=== PATIENT | male | born 1955 | race Caucasian/White ===

== ENCOUNTER 2019-11-03 16:15 | Emergency (ER) | payer OTHER ==
[~2019-11-03] VITALS: Ht 175.3 cm; Wt 77.1 kg
[2019-11-03 16:46] VITALS: BP 131/70
--- NOTE | 2019-11-03 17:03 | RAD ---
Right upper Extremity Venous Doppler Ultrasound History: Pain and redness and swelling Comparison: None Procedure: Color flow, duplex, spectral analysis and 2D images are obtained with and without compression in the area of the deep and superficial venous structures of the upper , specifically the axillary, brachials, radial and ulnar deep veins and the superficial basilic and cephalic veins. Color Doppler and venous waveform analysis was also applied to the left jugular and subclavian vein. Findings: There is occlusive thrombus along the length of the basilic vein and its branches. There is normal duplex flow, color flow and compressibility of all visualized vein segments. No evidence of deep venous thrombus is present. Impression: Positive for superficial thrombus in the basilic vein and branches. No DVT. Electronically signed by: Yoni Pyle III, MD (11/03/2019 5:00 PM) [facility]
[2019-11-03] MEDS ORDERED: RIVA10TA PO (17:26)
[2019-11-03] MEDS ORDERED: DICL100G18 TP (17:26)
--- NOTE | 2019-11-03 17:27 | PHYS DOC ---
Past History Past Medical History: Anxiety, Depression Past Surgical History: Other Alcohol Use: Occasionally Drug Use: None Adult General Chief Complaint Chief Complaint: UPPER EXTREMITY PAIN HPI HPI Patient is a 64 year old M who presents with right arm pain that started after an IV started. He did finish a course of Keflex however symptoms have not improved. He notes pain and mild redness. He also notes a palpable cord on the anterior right arm. He has no other symptoms at this time. He has no other exacerbating or relieving factors. Review of Systems Review of Systems Constitutional: Denies fever or chills [] Eyes: Denies change in visual acuity, redness, or eye pain [] HENT: Denies nasal congestion or sore throat [] Respiratory: Denies cough or shortness of breath [] Cardiovascular: No additional information not addressed in HPI [] GI: Denies abdominal pain, nausea, vomiting, bloody stools or diarrhea [] : Denies dysuria or hematuria [] Musculoskeletal: Denies back pain or joint pain [] Integument: Denies rash or skin lesions [] Neurologic: Denies headache, focal weakness or sensory changes [] Endocrine: Denies polyuria or polydipsia [] All other systems were reviewed and found to be within normal limits, except as documented in this note. Family History Family History No pertinent family medical history was reported Current Medications Current Medications Current medications were reviewed Allergies Allergies Allergies Coded Allergies Type Severity Reaction Last Updated Verified Sulfa (Sulfonamide Antibiotics) Allergy Severe 04/05/16 Yes immune globulin,gamma (IgG) human Allergy Severe 04/05/16 Yes pneumococcal vaccine Allergy Severe 04/05/16 Yes Physical Exam Physical Exam Constitutional: Well developed, well nourished, no acute distress, non-toxic levi earance. [] HENT: Normocephalic, atraumatic, Eyes: EOMI, conjunctiva normal, no discharge. [] Neck: Normal range of motion, no tenderness, supple, no stridor. [] Cardiovascular:Heart rate regular rhythm, Lungs & Thorax: Bilateral breath sounds clear to auscultation [] Abdomen: Bowel sounds normal, soft, no tenderness, no masses, no pulsatile masses. [] Skin: Warm, dry, no erythema, no rash. [] Extremities: Mild erythema noted on the right anterior arm. Palpable cord noted along the anterior medial arm Neurologic: Alert and oriented X 3, normal motor function, normal sensory function, no focal deficits noted. [] Psychologic: Affect normal, judgement normal, mood normal. [] Current Patient Data Vital Signs Please review nursing documentation for vitals EKG EKG [] Radiology/Procedures Radiology/Procedures US R UE Impressions: Superficial thrombus in the basilic vein and branches, larger than 5 cm Course & Med Decision Making Course & Med Decision Making Pertinent Labs and Imaging studies reviewed. (See chart for details) Dragon Disclaimer Dragon Disclaimer This electronic medical record was generated, in whole or in part, using a voice recognition dictation system. Departure Departure: Impression: Primary Impression: Superficial venous thrombosis of arm Disposition: HOME, SELF-CARE Condition: STABLE Referrals: ELIANA JONES MD (PCP) Patient Instructions: Venous Thromboembolism Additional Instructions: José Manuel seen in the emergency department for arm pain. No emergency medical condition was found on history of physical exam. However he was found have a superficial clot in his right arm. Given that this clot was larger than 5 cm he was given medication to prevent further expansion of this clot and to allow his body to break it down over time. He was also given a prescription for a topical anti-inflammatory for pain. He is advised follow up with his primary care doctor as needed for further management. Scripts Diclofenac Sodium (VOLTAREN) 100 Gm Gel..gram. 1 GM TP QID for pain, #100 GM 2 Refills Prov: PAPI BENNETT MD 11/03/19 Rivaroxaban (XARELTO) 10 Mg Tablet 1 TAB PO DAILY for large superficial venous clot for 45 Days, #45 TAB 0 Refills Prov: PAPI BENNETT MD 11/03/19 Problem Qualifiers Primary Impression: Superficial venous thrombosis of arm Laterality: right Qualified Codes: I82.611 - Acute embolism and thrombosis of superficial veins of right upper extremity PAPI BENNETT MD Nov 03, 2019 17:27
== END 2019-11-03 17:34 | disposition home or self-care (01) ==
LOC: ER 16:15
DX: I82.611 Acute embolism and thrombosis of superficial veins of right upper extremity (principal); F41.9 Anxiety disorder, unspecified; F32.9 Major depressive disorder, single episode, unspecified
CPT/HCPCS: 93971; 99284-25

== ENCOUNTER → 2022-03-03 | Outpatient (CLI) | payer OTHER ==
[~2022-03-03] MED LIST: DICL100G18 TP; RIVA10TA PO
--- NOTE | 2022-03-03 14:59 | RAD ---
US BREAST LTD LT History:Reason: LUMP/SWELLING LT BREAST X1 MONTH / Spl. Instructions: / History: Comparison: None Technique: Sonographic examination of the left breast was performed and multiple static images were obtained. Findings: Gynecomastia corresponding with patient's palpable concern. No pathologic lymphadenopathy within the left axilla. Impression: 1. Left gynecomastia. Recommend clinical follow-up. If interval growth or change in patient's sympto ms recommend diagnostic mammogram with potential ultrasound. BI-RADS Category 2: Benign. Electronically signed by: Prmio Tobar DO (03/03/2022 2:57 PM) [id number]
== END ==
LOC: US 14:09
PROVIDERS: ATTEND Nurse Practitioner Gerontology
DX: N62 Hypertrophy of breast (principal); N63.20 Unspecified lump in the left breast, unspecified quadrant
CPT/HCPCS: 76642